=== PATIENT | female | born 1970 | race Caucasian/White ===

== ENCOUNTER 2019-12-18 03:59 | Emergency (ER) | payer OTHER, SELFPAY ==
--- NOTE | ~2019-12-18 | CT_ITS ---
EXAMINATION: CT abdomen pelvis w con DATE: 12/18/2019 05:56 INDICATION: Right upper abdominal pain TECHNIQUE: Computed tomography (CT) of the abdomen and pelvis was performed with 100 mL Omnipaque-350 intravenous contrast. Automated exposure control and iterative reconstruction technique were employe d. The dose-length product was 314.78 mGy-cm. COMPARISON: None FINDINGS: Lung bases are clear. Heart size is normal. No pericardial or pleural effusion. Gallbladder the upper limits of normal measuring 4.4 cm in diameter without evident wall thickening or pericholecystic inf lammatory change. Mildly dilated gallbladder measuring up to 7-8 mm. No intrahepatic biliary ductal d ilation or evident obstructing stone or mass. Pancreas, spleen, bilateral adrenal glands and right ki dney are normal. 6 mm low-attenuation cyst at the lower pole of the left kidney. No abnormal bowel wa ll thickening or obstruction. The appendix is not visualized. No pericecal inflammatory change to sug gest acute appendicitis. Bilateral adnexal cysts measuring 1.9 cm on the right and 6.3 x 4.5 cm on th e left. Bladder and uterus are unremarkable. Trace amount of likely physiologic free fluid in the cul -de-sac. No abscess or free intraperitoneal gas. Tiny fat-containing umbilical hernia. No pathologica lly enlarged abdominal or pelvic lymphadenopathy. Minimal thoracolumbar levocurvature with minimal to mild spondylosis. IMPRESSION: 1. Borderline dilated gallbladder and mildly dilated common bile duct measuring up to 7-8 mm with no evident obstructing stone or mass. Correlate with liver function tests and for Downs's sign. 2. 6.3 x 4.5 cm left adnexal cyst. Recommend follow-up pelvic ultrasound. Reviewed, dictated and finalized at location A. IMPRESSION: 1. Borderline dilated gallbladder and mildly dilated common bile duct measuring up to 7-8 mm with no evident obstructing stone or mass. Correlate with liver f unction tests and for Downs's sign. 2. 6.3 x 4.5 cm left adnexal cyst. Recommend follow-up pelvic ultrasound.
[2019-12-18 04:02] VITALS: BP 147/97; PULSE 78; RESP 20; TEMP 36.8; O2SAT 100
[2019-12-18 04:45] LABS: Basophils Percent Auto 0.4 % (0.2-1.2); Eosinophils Percent Auto 0.1 % (0-4.4); Hematocrit 43.1 % (37.0-47.0); Hemoglobin 14.8 g/dL (12.0-15.0); Immature Granulocyte Absolute 0.03 K/mm3 (0.00-0.031); Immature Granulocyte Percent A 0.3 % (0-0.5); Lymphocytes Absolute Auto 0.71 K/mm3 (0.9-3.2); Lymphocytes Percent Auto 6.2 % (18.3-44.2); Mean Corpuscular HGB Conc 34.3 g/dl (32-36); Mean Corpuscular Hemoglobin 30.2 pg (26-34); Mean Platelet Volume 10.3 fl (7.4-10.4); Monocytes Absolute Auto 0.7 K/mm3 (0.1-0.6); Monocytes Percent Auto 5.9 % (2.6-8.5); Neutrophils Percent Auto 87.1 % (45.5-73.1); Platelet Count Result 332 k/mm3 (150-375); Red Cell Distribution Width 13.3 % (11.5-14.5); White Blood Count 11.4 K/mm3 (4.5-10.0)
[2019-12-18 04:48] LABS: Add Urine Microscopic? YES; Appearance Urine Clear (Clear); Bacteria Urine Trace /hpf; Bilirubin Urine Negative (Negative); Blood Urine Negative (Negative); Color Urine Yellow (Yellow); Glucose Urine UA Negative (Negative); Ketones Urine Trace mg/dL (Negative); Leukocyte Esterase Ur Negative LEU/UL (Negative); Mucus Urine Rare /lpf; Nitrate Urine Negative (Negative); Protein Urine 2+ mg/dL (Negative); Specific Grav Ur 1.024 (1.001-1.035); Squamous Epithelial Cell Urine Occasional /hpf (Few); WBC Urine 0-3 /hpf
--- NOTE | 2019-12-18 04:57 | ED.ABDPAIN ---
HPI - Abdominal Pain General Chief Complaint: Abdominal Pain Stated Complaint: RUQ pain Time Seen by Provider: 12/18/19 04:13 Source: patient Mode of arrival: ambulatory Limitations: no limitations History of Present Illness HPI narrative: This patient is a 49 year old female who presents for evaluation of right upper abdominal pain . This pain started 9 pm last night approximately 4 hours after eating. This pain has been constant . She reports associated nausea and vomiting but she reports she thinks it was due to pain. She took ibuprofen hours ago but she has continued to have pain. She denies similar episodes in the past. MD elicited complaint: abdominal pain Onset (ago): hour(s) (10) Location: RUQ Related Data Allergies Allergy/AdvReac Type Severity Reaction Status Date / Time prochlorperazine Allergy Swelling Verified 12/18/19 04:05 [From Compazine] Review of Systems Review of Systems: All systems reviewed & are unremarkable except as noted in HPI and below Constitutional: Constitutional: Denies chills and Denies fever(s) Respiratory: Respiratory: Denies dyspnea Gastrointestinal: Gastrointestinal: Reports abdominal pain, Reports nausea and Reports vomiting Genitourinary: Genitourinary: Denies hematuria, Denies dysuria and Denies vaginal discharge Musculoskeletal: Musculoskeletal: Reports back pain PMFSH Past Medical History Medical History (Updated 12/18/19 @ 07:55 by Karlee Vazquez MD) Patient denies medical problems Surgical History Surgical History (Updated 12/18/19 @ 04:57 by Karlee Vazquez MD) H/O section Social History Social History (Updated 12/18/19 @ 04:58 by Karlee Vazquez MD) Smoking status: Never smoker Exam Narrative: Exam Narrative: GENERAL: Well-appearing, well-nourished, and in no acute distress. HEAD: Normocephalic, atraumatic EYES: PERRLA and EOMI, conjunctiva clear without discharge NECK: Supple, without lymphadenopathy or mass RESPIRATORY: No respiratory distress, Airway patent, Respirations non-labored, Clear to auscultation without rales, rhonchi or wheeze HEART: Regular rate and rhythm. No murmur heard. Normal peripheral pulses. ABDOMEN: Soft, RUQ, nondistended, normal active bowel sounds. No masses. No rebound or guarding, No organomegaly. EXTREMITIES: No edema, normal strength with full range of motion. SKIN: Warm, dry, normal color without rash NEURO: Alert and oriented x3. CN 2-12 grossly intact. No focal deficits. PSYCH: Normal mood and affect. Course Reevaluation(s) Reevaluation #1: Patient reports her pain has completely resolved. I discussed CT showed distended gallbladder but no gallstones. I discussed diet restriction and followu p. She had mildly elevated LFT that look like it is due to alcohol. She does admit to drinking alcohol today Date: 12/18/19 Time: 07:52 Vital Signs Vital signs: Vital Signs Temperature 98.2 F 12/18/19 04:02 Pulse Rate 78 12/18/19 04:02 Respiratory Rate 20 12/18/19 04:02 Blood Pressure 147/97 H 12/18/19 04:02 Pulse Oximetry 100 12/18/19 04:02 Temperature 98.2 F 12/18/19 04:02 Pulse Rate 70 12/18/19 08:07 Respiratory Rate 12 12/18/19 08:07 Blood Pressure 124/70 12/18/19 08:07 Pulse Oximetry 99 12/18/19 08:07 MDM - Abdominal Pain Lab Data Attestation: I reviewed the patient's lab results. Result diagrams: 12/18/19 04:29 12/18/19 04:29 Labs: Lab Results 12/18/19 12/18/19 12/18/19 Range/Units 04:29 04:29 04:29 WBC 11.4 H (4.5-10.0) K/mm3 RBC 4.90 (4.2-5.4) M/mm3 Hgb 14.8 (12.0-15.0) g/dL Hct 43.1 (37.0-47.0) % MCV 88.0 (80-100) fl MCH 30.2 (26-34) pg MCHC 34.3 (32-36) g/dl RDW 13.3 (11.5-14.5) % Plt Count 332 (150-375) k/mm3 MPV 10.3 (7.4-10.4) fl Immature Gran % (Auto) 0.3 (0-0.5) % Neut % (Auto) 87.1 H (45.5-73.1) % Lymph % (Auto) 6.2 L (18.3-
[2019-12-18 05:00] LABS: Alanine Aminotransferase 70 U/L (4-35); Albumin Level 4.6 g/dL (3.5-5.1); Alkaline Phosphatase 91 U/L (38-126); Anion Gap 9 mmol/L (8-16); Aspartate Amino Transferase 138 U/L (14-36); Bilirubin,Total 0.8 mg/dL (0.2-1.3); Blood Urea Nitrogen 11 mg/dL (7-17); Calcium 9.4 mg/dL (8.4-10.2); Carbon Dioxide 26 mmol/L (22-30); Chloride 102 mmol/L (98-107); Estimated CRCL calculation 80 ml/min; Estimated Glomerular Filt Rate > 60; Glucose 167 mg/dL (65-105); Lipase 126 U/L (23-300); Potassium 3.9 mmol/L (3.4-5.0); Sodium 137 mmol/L (137-145)
[2019-12-18] MEDS: ONDANSETRON INJ 4 MG/2 ML VIAL IV PUSH (05:20)
[2019-12-18] MEDS: MORPHINE SULFATE 4 MG/ML INJ IV PUSH (05:21)
[2019-12-18] MEDS: LACTATED RINGERS 1,000 ML 999 ML IV CONT (05:22)
[2019-12-18 06:41] VITALS: BP 122/75; PULSE 69; RESP 16; O2SAT 98
[2019-12-18 08:07] VITALS: BP 124/70; PULSE 70; RESP 12; O2SAT 99
== END 2019-12-18 08:08 | disposition home or self-care (01) ==
PROVIDERS: Emergency Provider General Practice
DX: K80.50 Calculus of bile duct without cholangitis or cholecystitis without obstruction (principal); R10.11 Right upper quadrant pain; N94.89 Other specified conditions associated with female genital organs and menstrual cycle
CPT/HCPCS: 36415; 74177; 80053; 81001; 81025; 83690; 85025; 96365; 96375; 99284; J0131; J2270; J2405; J7120; Q9967

== ENCOUNTER 2023-10-12 16:56 | Outpatient (RCR) | payer OTHER, SELFPAY ==
--- NOTE | 2023-10-12 18:09 | PTOPEVAL1 ---
Assessment and note entered by Vic Sheppard Evaluation Information Assessment Status Evaluation Diagnosis s/p right open repair hamstring Onset 10/07/23 Subjective Information Pt. reports she underwent surgery on 10/07/23. She states that she has had frustration since surgery due to feeling inadequately prepared to care for herself at home. She reports that she does not know how to position her leg. She report she is having little pain at this time. She does notices a pull in the area of the buttock. She states that she is having trouble sitting on the toilet and has a raised toilet seat. She reports that she is having trouble sitting and does not know how to lay down. she reports she is currently toe touch weight bearing. Pt. reports her goal is to regain normal right l.e. movement Reported Pain Level Pain Score 0: Self Report Assessment PT Clinical Summary Pt. enters the clinic 5 days post right hamstring repair. She presents with impaired strength, functional decline, impaired gait and pain. Continued skilled PT is indicated in order to re- establish normal right l.e. function to return to normal IADL performance. Plan of Care Interventions Electrical Stimulation,Gait Training,Hot Pack/Cold Pack,Manual Therapy,Neuro Re-education,Patient/ Caregiver Educati,Therapeutic Activities, Therapeutic Exercise PT Services Indicated Yes Treatment Frequency and 1x/week x 6 visits Duration These treatments will address the objective and functional deficits as defined above. The patient will be advanced safely and appropriately in order for the patient to progress towards his/her prior level of function. Additional exercises will be introduced and as well as a comprehensive home exercise program upon discharge, if needed, ?to ensure carryover of functional gains achieved in the clinic. This treatment plan has been reviewed and agreement upon by the patient.
--- NOTE | 2023-10-12 18:10 | OPREHPOC ---
Outpatient Therapy Plan of Care This is a Multidisciplinary Plan of Care that may contain components documented by all disciplines (PT, OT, and ST.) PT Problem 1 PT Problem #1 Knowledge Deficit PT Goal 1 Goal Pt. will be independent with HEP and demonstrate knowledge of WB and precautions Target Visit 2 PT Goal 1 Goal Pt. will achieve 50% weight bearing over the right l.e. with axillary crutches Target Visit 6
--- NOTE | 2023-11-26 15:59 | OPREHPOC ---
Outpatient Therapy Plan of Care This is a Multidisciplinary Plan of Care that may contain components documented by all disciplines (PT, OT, and ST.) PT Problem 1 PT Problem #1 Knowledge Deficit PT Goal 1 Goal Pt. will be independent with HEP and demonstrate knowledge of WB and precautions Target Visit 2 Progress Met PT Problem 2 PT Problem #2 Impaired Gait PT Goal 1 Goal Pt. will achieve 50% weight bearing over the right l.e. with axillary crutches Target Visit 6 Progress Met PT Goal 2 Goal 1. patient to ambulate up and down steps with reciprocal mechanics 2. patient to ambulate with normal gait mechanics and gómez/gait speed without an AD. Target Visit 16 PT Problem 3 PT Problem #3 Impaired Strength PT Goal 1 Goal 1. 5/5 R hamstrings strength in prone Target Visit 16 PT Problem 4 PT Problem #4 Impaired Functional Mobil PT Goal 1 Goal 1. patient to perform SLS balance on the R for 15 second or more.
--- NOTE | 2023-11-26 15:59 | PTOPREEVAL ---
Assessment and note entered by JT File, PT Evaluation Information Assessment Status Re-evaluation Diagnosis s/p right open repair hamstring Onset 10/07/23 Subjective Information patient reports she is improved since her initial evaluation. she is back to work, but reports sitting is the worst on her as she is sitting on the affected buttock. she reports she returns to [facility] for follow up on 12/14/23. patient is 7 weeks and 1 day post op. she is in phase 2 of her post op protocol, and will not progress to phase 3 until 3 months post-op. she reports at times she gets nerve like symptoms in the R hamstrings, and pain with pressure on the side of the hip and buttock. Reported Pain Level Pain Score 3: Self Report Assessment PT Clinical Summary mrs. garcía presents to skilled PT for her 6th skilled PT visit. she is now progressed to phase 2 of her rehab protocol. she is allowed to begin hamstrings stregthening. she was educated in several new exercises for increased hamstrings strength, and progressed to ambulation without an AD today. she would benefit from continued skilled PT with progression through phase 2 of her post- op protocol to return to prior level functional activity performance and quality of life. Plan of Care Interventions Electrical Stimulation,Gait Training,Hot Pack/Cold Pack,Manual Therapy,Neuro Re-education,Patient/ Caregiver Educati,Therapeutic Activities, Therapeutic Exercise PT Services Indicated Yes Treatment Frequency and continue skilled PT 2x weekly for 10 more visits Duration These treatments will address the objective and functional deficits as defined above. The patient will be advanced safely and appropriately in order for the patient to progress towards his/her prior level of function. Additional exercises will be introduced and as well as a comprehensive home exercise program upon discharge, if needed, ?to ensure carryover of functional gains achieved in the clinic. This treatment plan has been reviewed and agreement upon by the patient.
--- NOTE | 2024-01-01 08:01 | OPREHPOC ---
Outpatient Therapy Plan of Care This is a Multidisciplinary Plan of Care that may contain components documented by all disciplines (PT, OT, and ST.) PT Problem 1 PT Problem #1 Knowledge Deficit PT Goal 1 Goal / Goal Update Pt. will be independent with HEP and demonstrate knowledge of WB and precautions Target Visit 2 Progress Met PT Problem 2 PT Problem #2 Impaired Gait PT Goal 1 Goal / Goal Update Pt. will achieve 50% weight bearing over the right l.e. with axillary crutches Target Visit 6 Progress Met PT Goal 2 Goal / Goal Update 1. patient to ambulate up and down steps with reciprocal mechanics 2. patient to ambulate with normal gait mechanics and gómez/gait speed without an AD. Target Visit 24 Progress Not Met PT Problem 3 PT Problem #3 Impaired Strength PT Goal 1 Goal / Goal Update 1. 5/5 R hamstrings strength in prone Target Visit 24 Progress Not Met PT Problem 4 PT Problem #4 Impaired Functional Mobil PT Goal 1 Goal / Goal Update 1. patient to perform SLS balance on the R for 15 second or more. Target Visit 24 Progress Not Met
--- NOTE | 2024-01-01 08:01 | PTOPREEVAL ---
Assessment and note entered by JT File, PT Evaluation Information Assessment Status Re-evaluation Diagnosis s/p right open repair hamstring Onset 10/07/23 Subjective Information patient reports she is still not good today. earlier this week she had an episode where she jumped down from the bleachers. she had therapy a day later after this incident where her exercises/ activities were reduced from her prior level progressions. she reports she feels like she has a pocket of water in the inner thigh/back of thigh that she feels is swinging around when she walks. she reports she has gone back to wearing the errol wrap around her leg from the issue. she now feels she is pulling the R LE along to walk, and has regressed significantly. she did contact the MD office who suggested she continue her therapy today as it is in a controlled environment . she reports she has had difficult to get her leg up to her to get dressed, but is still able to drive. Reported Pain Level Pain Score 4: Self Report Assessment PT Clinical Summary mrs. garcía presents to skilled PT services today for her 16th skilled PT visit. she was progressing well up until this week when she had an injury taking a small hop/jump off a set of bleachers. she has since had swelling in the posterior thigh, increased pain around the hamstrings mm belly and origin, and difficulty walking. patient displays weakness in the R hamstrings and tenderness surrounding the hamstrings mm belly and origin. however, she does have good tendon activation both proximally and distally. she was reduced in exercises/activities since her incident both in the clinic and at home. she will follow up with the surgeon this coming Thursday, but was educated on the plan to continue skilled PT after this visit. Plan of Care Interventions Electrical Stimulation,Gait Training,Hot Pack/Cold Pack,Manual Therapy,Neuro Re-education,Patient/ Caregiver Educati,Therapeutic Activities, Therapeutic Exercise PT Services Indicated Yes Treatment Frequency and continue skilled PT 2x weekly for 8 more visits. Duration These treatments will address the objective and functional deficits as defined above. The patient will be advanced safely and appropriately in order for the patient to progress towards his/her prior level of function. Additional exercises will be int
== END 2024-01-08 15:55 | disposition still patient (30) ==
LOC: CHSPT 16:56
DX: S76.301A Unspecified injury of muscle, fascia and tendon of the posterior muscle group at thigh level, right thigh, initial encounter (principal)
CPT/HCPCS: 97110; 97112; 97140; 97150; 97161; 97530

== ENCOUNTER 2024-01-13 16:01 | Outpatient (RCR) | payer OTHER, SELFPAY ==
--- NOTE | 2024-01-27 08:09 | OPREHPOC ---
Outpatient Therapy Plan of Care This is a Multidisciplinary Plan of Care that may contain components documented by all disciplines (PT, OT, and ST.) PT Problem 1 PT Problem #1 Knowledge Deficit PT Goal 1 Goal / Goal Update Pt. will be independent with HEP and demonstrate knowledge of WB and precautions Target Visit 2 Progress Met PT Problem 2 PT Problem #2 Impaired Gait PT Goal 1 Goal / Goal Update Pt. will achieve 50% weight bearing over the right l.e. with axillary crutches Target Visit 6 Progress Met PT Goal 2 Goal / Goal Update 1. patient to ambulate up and down steps with reciprocal mechanics 2. patient to ambulate with normal gait mechanics and gómez/gait speed without an AD. Target Visit 24 Progress Met PT Problem 3 PT Problem #3 Impaired Strength PT Goal 1 Goal / Goal Update 1. 5/5 R hamstrings strength in prone Target Visit 24 Progress Not Met PT Goal 2 Goal / Goal Update continue PT Problem 4 PT Problem #4 Impaired Functional Mobil PT Goal 1 Goal / Goal Update 1. patient to perform SLS balance on the R for 15 second or more. Target Visit 24 Progress Met
--- NOTE | 2024-01-27 08:09 | PTOPPROG ---
Assessment and note entered by Estephania Allen, PT Evaluation Information Assessment Status Progress Diagnosis s/p R open proximal hamstring repair Onset 10/07/23 Subjective Information Sandie reports she has been having a strong pinching feeling in the back of the her upper thigh which she feels is nerve pain. She has been having this pain for about 2 weeks. She has been having a hot dagger pain when she pushes into the belly of her hamstring muscle, present since surgery. She is getting frustrated with the constant pain. She is also frustrated with her lack of strength as she feels it is just as hard to lift her leg backwards now as it was the first time she did it. She has constant tingling and bone pain in her inner groin/perineal area. She did have an incident about 3-4 weeks ago when she jumped off a bleacher and when she landed she felt a sharp pain from behind her knee up to buttock. She has been set back a bit since then and is worried she re-tore her hamstring. Assessment PT Clinical Summary Sandie Hernandes has completed 23 out of 24 visits, with one visit pending on 01/29/24, following a right open repair of the proximal hamstring. She is reporting constant pinching pain in the upper hamstring, intermittent hot dagger pain in the hamstring muscle belly, and tingling and bone pain in the medial ischial tuberosity area. She voices frustration with constant pain and lack of strength in her right hamstring. She did have an incident approximately 4 weeks ago when she jumped off a bleacher and felt pain from her knee to her buttock when she landed. She has had more pain since that time. She objectively demonstrates full right knee AROM, improved but still limited right hip flexion AROM and hamstring flexibility, and improved but still limited hip extension and abduction strength. She will continue to benefit from skilled PT to further improve her strength, improved functional mobility, decrease pain, and decreased scar tissue/soft tissue restrictions. Plan of Care Interventions Manual Therapy,Neuro Re-education,Patient/ Caregiver Educati,Therapeutic Activities, Therapeutic Exercise PT Services Indicated Yes Treatment Frequency and 2 times a week for 8 visits Duration These treatments will address the objective and functional deficits as defined above. The patient will be advanced safely and appropriately in order for the patient to progress towards his/her prior level of function. Additional exercises will be introduced and as well as a comprehensive home exercise program upon discharge, if needed, ?to ensure carryover of functional gains achieved in the clinic. This treatment plan has been reviewed and agreement upon by the patient.
--- NOTE | 2024-02-10 16:30 | PCPTNOTE ---
Cancelled session. Pt's father passed Thursday and she states she has a lot to get ready for the and is running behind from work.
--- NOTE | 2024-03-04 17:32 | OPREHPOC ---
Outpatient Therapy Plan of Care This is a Multidisciplinary Plan of Care that may contain components documented by all disciplines (PT, OT, and ST.) PT Problem 1 PT Problem #1 Knowledge Deficit PT Goal 1 Goal / Goal Update Pt. will be independent with HEP and demonstrate knowledge of WB and precautions Target Visit 2 Progress Met PT Problem 2 PT Problem #2 Impaired Gait PT Goal 1 Goal / Goal Update Pt. will achieve 50% weight bearing over the right l.e. with axillary crutches Target Visit 6 Progress Met PT Goal 2 Goal / Goal Update 1. patient to ambulate up and down steps with reciprocal mechanics 2. patient to ambulate with normal gait mechanics and gómez/gait speed without an AD. Target Visit 24 Progress Met PT Problem 3 PT Problem #3 Impaired Strength PT Goal 1 Goal / Goal Update 1. 5/5 R hamstrings strength in prone Target Visit 24 Progress Met PT Goal 2 Goal / Goal Update . PT Problem 4 PT Problem #4 Impaired Functional Mobil PT Goal 1 Goal / Goal Update 1. patient to perform SLS balance on the R for 15 second or more. Target Visit 24 Progress Met
--- NOTE | 2024-03-04 17:32 | PTOPDC ---
Assessment and note entered by JT File, PT Evaluation Information Assessment Status Discharge Diagnosis s/p R open proximal hamstring repair Onset 10/07/23 Subjective Information patient reports she feels good today. she reports she has no pain in the R LE. she reports she is compliant with her HEP at home, and was able to complete a set of hamstring curl exercise with the R LE recently. Reported Pain Level Pain Score 0: Self Report Assessment PT Clinical Summary mrs. garcía presents to skilled PT with no pain in the R LE. she is in the final phase of her post operative protocol, and is progressing her exercises independent at home. she has met all goals for skilled PT as of this date. she will DC skilled PT and continue with HEP independent at home. patient was educated to follow up with PT or surgeon for any setbacks. Plan of Care PT Services Indicated Yes
== END 2024-03-04 17:05 | disposition home or self-care (01) ==
LOC: CHSPT 16:01
DX: S76.301A Unspecified injury of muscle, fascia and tendon of the posterior muscle group at thigh level, right thigh, initial encounter (principal)
CPT/HCPCS: 97110; 97150; 97530; 97750